=== PATIENT | male | born 1990 | race Caucasian/White ===

== ENCOUNTER → 2019-12-02 10:58 | Outpatient (BNVA) | payer SELFPAY | PROVIDERS: Family Provider Family Medicine; PCP Family Medicine; Visit Provider Family Medicine | DX: Z09 Encounter for follow-up examination after completed treatment for conditions other than malignant neoplasm; F33.41 Major depressive disorder, recurrent, in partial remission; E86.0 Dehydration; T67.5XXA Heat exhaustion, unspecified, initial encounter | CPT/HCPCS: 80053; 82550; 85025 ==

== ENCOUNTER → 2023-04-18 09:55 | Outpatient (BNVA) | payer SELFPAY | PROVIDERS: Family Provider Family Medicine; PCP Family Medicine; Visit Provider Podiatrist Foot & Ankle Surgery | DX: S86.011A Strain of right Achilles tendon, initial encounter; X50.9XXA Other and unspecified overexertion or strenuous movements or postures, initial encounter | CPT/HCPCS: 73610 ==

== ENCOUNTER 2023-04-18 11:18 | Outpatient (CLI) | payer SELFPAY | END 2023-04-18 11:19 | disposition home or self-care (01) | LOC: SPT 11:18 | PROVIDERS: Family Provider Family Medicine; PCP Family Medicine; Visit Provider Podiatrist Foot & Ankle Surgery | DX: Z46.89 Encounter for fitting and adjustment of other specified devices (principal); S86.019D Strain of unspecified Achilles tendon, subsequent encounter; X58.XXXD Exposure to other specified factors, subsequent encounter | CPT/HCPCS: 97760; L3170; L4361 ==

== ENCOUNTER 2025-03-29 15:02 | Outpatient (CLI) | payer SELFPAY ==
--- NOTE | 2025-03-29 15:08 | XR_ITS ---
WS: [id number] Exam: XR foot RT 2V [id number] Date/Time of Exam: 03/29/2025 3:17 PM Reason For Exam: probable fracture right middle toe There is a probable avulsion fracture involving the distal end of the third middle phalanx. This is not well demonstrated in the AP view or the lateral view. No other fractures. Soft tissue swelling of the third toe. The joints are preserved. Recommendations: Oblique views and lateral view targeting the third toe would be recommended for further evaluation. XR/XR foot RT 2V [id number] IMPRESSION: 1. Suboptimally visualized probable fracture of the distal end of the third mid dle phalanx. Associated soft tissue swelling of the third toe.
== END 2025-03-29 15:03 | disposition home or self-care (01) ==
LOC: RAD 15:04
PROVIDERS: Family Provider Family Medicine; PCP Family Medicine; Visit Provider Family Medicine
DX: S92.912A Unspecified fracture of left toe(s), initial encounter for closed fracture (principal); X58.XXXA Exposure to other specified factors, initial encounter
CPT/HCPCS: 73620